=== PATIENT | female | born 1960 | race Caucasian/White ===

== ENCOUNTER 2022-02-07 10:25 | Inpatient (IN) ==
[2022-02-07 11:53] LABS: ABS Lymphocytes 0.7 10^3/ul (1.0-4.8); ABS Monocytes 0.6 10^3/ul (0-0.8); ABS Neutrophils 5.3 10^3/ul (1.5-7.7); Eosinophil % 0.4 %; Hematocrit 37 % (35-47); Hemoglobin 12.4 g/dL (12.0-16.0); Lymphocyte % 10.3 %; Mean Corpuscular HGB Conc 34 g/dL (31-36); Mean Corpuscular Hemoglobin 31 pg (27-31); Mean Corpuscular Volume 90 fL (80-97); Mean Platelet Volume 7.7 fL (7.4-10.4); Platelet Count 200 10^3/uL (150-450); Red Blood Count 4.07 10^6 /uL (3.70-4.87); Red Cell Distribution Width 14 % (10-15); White Blood Count 6.7 10^3/uL (3.5-10.8)
[2022-02-07 12:11] LABS: INR 1.19 (0.89-1.11)
[2022-02-07 12:41] LABS: Albumin 3.5 g/dL (3.2-5.2); Albumin/Globulin Ratio 1.6 (1-3); Calcium 8.1 mg/dL (8.6-10.3); Globulin 2.2 g/dL (2-4); Potassium 4.1 mmol/L (3.5-5.0); Total Bilirubin 1.4 mg/dL (0.2-1.0); Total Protein 5.7 g/dL (6.4-8.9); eGFR CKD-EPI 98.9 (>60)
[2022-02-07] MEDS ORDERED: Iohexol 350 (CONTRAST) 500 ML MDV IV ONE (12:49)
[2022-02-07 13:39] LABS: High Sensitivity Troponin 1 Hr 1011 pg/mL (<15)
[2022-02-07] MEDS ORDERED: NS 0.9% 1000 ml BAG 1,000 ML IV ONE (14:11)
[2022-02-07] MEDS ORDERED: Ondansetron 4 mg VIAL 2 MG/ML 2 ml VIAL IV PRN (15:05)
[2022-02-07] MEDS ORDERED: Remdesivir 200 mg LOADING DOSE X1 IV ONE (16:00)
[2022-02-07] MEDS ORDERED: Enoxaparin 40 MG/0.4 ML SYR SUBCUT SCH (16:00)
[2022-02-07] MEDS ORDERED: dilTIAZem 30 MG TAB PO SCH (18:00)
[2022-02-07 19:04] LABS: High Sensitivity Troponin 1 Hr 931 pg/mL (<15)
[2022-02-07 19:35] LABS: HDL Cholesterol 36.6 mg/dL
[2022-02-07] MEDS: Albuterol HFA INHALER 8 gm MDI INH SCH (19:51)
[2022-02-07] MEDS: Aspirin EC 81 mg TAB.EC (enteric coated) PO SCH (20:21)
[2022-02-08 06:39] LABS: ABS Lymphocytes 0.7 10^3/ul (1.0-4.8); ABS Monocytes 0.2 10^3/ul (0-0.8); ABS Neutrophils 2.5 10^3/ul (1.5-7.7); Hematocrit 35 % (35-47); Hemoglobin 11.8 g/dL (12.0-16.0); Mean Corpuscular HGB Conc 34 g/dL (31-36); Mean Corpuscular Hemoglobin 31 pg (27-31); Mean Corpuscular Volume 91 fL (80-97); Mean Platelet Volume 7.9 fL (7.4-10.4); Platelet Count 215 10^3/uL (150-450); Red Blood Count 3.86 10^6 /uL (3.70-4.87); Red Cell Distribution Width 14 % (10-15); White Blood Count 3.4 10^3/uL (3.5-10.8)
[2022-02-08 06:50] LABS: Albumin 3.4 g/dL (3.2-5.2); Albumin/Globulin Ratio 1.5 (1-3); Calcium 8.4 mg/dL (8.6-10.3); Globulin 2.3 g/dL (2-4); Magnesium 2.6 mg/dL (1.9-2.7); Potassium 4.8 mmol/L (3.5-5.0); Total Bilirubin 0.6 mg/dL (0.2-1.0); Total Protein 5.7 g/dL (6.4-8.9); eGFR CKD-EPI 102.5 (>60)
[2022-02-08] MEDS: Albuterol HFA INHALER 8 gm MDI INH SCH ×4 (07:22→17:53)
[2022-02-08] MEDS: Aspirin EC 81 mg TAB.EC (enteric coated) PO SCH (08:17)
[2022-02-08] MEDS: Enoxaparin 80 MG/0.8 ML SYR SUBCUT SCH ×2 (08:18→22:10)
[2022-02-08 09:34] LABS: TSH Ultra Thyroid Stim Horm 0.5 mcIU/mL (0.34-5.60)
[2022-02-08 09:36] LABS: Free T3 2.4 pg/mL (2.5-3.9); Free T4 0.87 ng/dL (0.61-1.12)
[2022-02-08] MEDS: Artificial Tear OPHTH.OINT 3.5 GM BOTH EYES PRN ×2 (11:27→16:11)
[2022-02-08] MEDS ORDERED: Remdesivir 100 mg Vial 100 MG in NS 0.9% 250 ml 230 ML IV SCH (21:00)
[2022-02-08] MEDS: CMCS: Cyclosporine 0.05% OPHTH (NF) 0.4 ML VIAL BOTH EYES SCH (22:10)
[2022-02-08] MEDS: MAGNESIUM 1000 MG PO SCH (22:16)
[2022-02-09] MEDS: Albuterol HFA INHALER 8 gm MDI INH SCH ×4 (07:24→19:10)
[2022-02-09 07:39] LABS: Calcium 8.6 mg/dL (8.6-10.3); Magnesium 2.3 mg/dL (1.9-2.7)
[2022-02-09] MEDS: Enoxaparin 80 MG/0.8 ML SYR SUBCUT SCH (10:08)
[2022-02-09] MEDS: Artificial Tear OPHTH.OINT 3.5 GM BOTH EYES PRN (10:09)
[2022-02-09] MEDS: CMCS: Cyclosporine 0.05% OPHTH (NF) 0.4 ML VIAL BOTH EYES SCH ×2 (10:10→22:25)
[2022-02-09] MEDS ORDERED: methylPREDNISolone SOD SUCC 40 mg/ml 1 ml VIAL IV ONE (18:01)
[2022-02-09] MEDS: CMCS:diPHENhydraMINE CREAM 2%(NF) 28 gm TUBE TOPICAL SCH (22:20)
[2022-02-09] MEDS: MAGNESIUM 1000 MG PO SCH (22:23)
[2022-02-09] MEDS: Calamine LOTION BTL TOPICAL SCH (22:44)
[2022-02-10 06:50] LABS: Calcium 8.6 mg/dL (8.6-10.3); Magnesium 2.3 mg/dL (1.9-2.7); eGFR CKD-EPI 92.3 (>60)
[2022-02-10 06:51] LABS: Potassium 5.2 mmol/L (3.5-5.0)
[2022-02-10] MEDS: Albuterol HFA INHALER 8 gm MDI INH SCH ×3 (07:20→15:34)
[2022-02-10 08:08] LABS: Hematocrit 42 % (35-47); Hemoglobin 13.9 g/dL (12.0-16.0); Mean Corpuscular HGB Conc 33 g/dL (31-36); Mean Corpuscular Hemoglobin 30 pg (27-31); Mean Corpuscular Volume 91 fL (80-97); Mean Platelet Volume 8.8 fL (7.4-10.4); Platelet Count 389 10^3/uL (150-450); Red Blood Count 4.62 10^6 /uL (3.70-4.87); Red Cell Distribution Width 14 % (10-15); White Blood Count 6.2 10^3/uL (3.5-10.8)
[2022-02-10] MEDS: CMCS: Cyclosporine 0.05% OPHTH (NF) 0.4 ML VIAL BOTH EYES SCH (10:25)
[2022-02-10] MEDS: CMCS:diPHENhydraMINE CREAM 2%(NF) 28 gm TUBE TOPICAL SCH ×2 (10:26→13:22)
[2022-02-10] MEDS: Calamine LOTION BTL TOPICAL SCH ×2 (10:27→13:22)
[2022-02-10 11:09] LABS: INR 1.77 (0.89-1.11)
[2022-02-10 11:32] VITALS: BP 95/61
[2022-02-10 11:49] LABS: ABS Lymphocytes 0.8 10^3/ul (1.0-4.8); ABS Monocytes 0.3 10^3/ul (0-0.8); Eosinophil % 0.1 %; Lymphocyte % 13.7 %; Nucleated Red Blood Cells % 0.1
[2022-02-10 12:11] LABS: Albumin 3.3 g/dL (3.2-5.2); Albumin/Globulin Ratio 1.3 (1-3); Calcium 8.3 mg/dL (8.6-10.3); Globulin 2.6 g/dL (2-4); Potassium 4.8 mmol/L (3.5-5.0); Total Bilirubin 0.8 mg/dL (0.2-1.0); Total Protein 5.9 g/dL (6.4-8.9)
[2022-02-10 15:22] LABS: RBC Parasite Smear No Parasites Seen (No Parasite)
[2022-02-10 16:08] LABS: Urine Appearance Clear; Urine Bilirubin Negative (Negative); Urine Blood Negative (Negative); Urine Color Yellow; Urine Glucose Negative (Negative); Urine Ketones Negative (Negative); Urine Nitrite Negative (Negative); Urine Protein Negative (Negative); Urine Urobilinogen 0.2 (Negative) (Negative); Urine pH 6.5 (5.0-9.0)
[2022-02-13 18:50] LABS: Anaplasma phagocytophilum Negative (Negative); B. miyamotoi PCR, B Negative (Negative); Babesia divergens/MO-1 Negative (Negative); Babesia ducani Negative (Negative); Ehrlichia chaffeensis Negative (Negative); Ehrlichia ewingii/canis Negative (Negative); Ehrlichia muris eauclairensis Negative (Negative)
== END 2022-02-10 15:57 | disposition home or self-care (01) | DRG 201 ==
LOC: ED 10:25 → EDHOLD 10:25 → SUATTDRO 15:45 → MEDTELE 18:10
PROVIDERS: ADMIT Family Medicine; ATTEND Student in an Organized Health Care Education/Training Program